=== PATIENT | male | born 1965 | race Caucasian/White ===

== ENCOUNTER 2018-06-25 21:08 | Inpatient (IN) | payer OTHER ==
[~2018-06-25] VITALS: Ht 170.7 cm; Wt 84.0 kg
[~2018-06-25 21:08] MED LIST: ALBU8.5H8 INH; HYDR-3498 PO; LIPA1CAP6 PO; LIT300 PO; OLAN5TAB5 PO
[2018-06-25 22:13] VITALS: PULSE 80
--- NOTE | 2018-06-25 22:22 | HP ---
Date/Time of Note Date/Time of Note DATE: 06/25/18 TIME: 22:22 Assessment/Plan VTE Prophylaxis SCD applied (from Nsg): Yes Pharmacological prophylaxis: NA/contraindicated Pharm contraindication: low risk/ambulating Assessment/Plan Hospital Course This is a 53-year-old male being admitted to the telemetry floor for: #1 chest pain: Rule out ACS versus angina versus other. Patient has had ongoing intermittent symptoms of left-sided chest pain for the last month. He does have an extensive drug history and a past medical history. Will trend cardiac enzymes x3, the first that was negative. Will check an echocardiogram. Will consult cardiology . Will check hemoglobin A1c, lipid panel, TSH #2 Multiple abscesses: Patient does have a previous history of IV drug use. He does have multiple abscesses of varying stages on his shoulders as well as his bilateral buttocks. He did receive vancomycin at the transferring facility. He does not have a elevated white blood cell count nor is afebrile. Will obtain soft tissue ultrasound of the left buttocks as those abscesses seem the most amenable to possible drainage. Defer to the day team to consult general surgery once the results of the soft tissue ultrasounds are in. #3 history of pancreatitis; continue Creon #4 squamous cell carcinoma: We will need to confirm with the patient where exactly he had this #5 COPD: Currently stable. Inhalers as needed #6. Hypertension: We will need to confirm patient's home medications and treat blood pressure if indicated #7 history of hepatitis A, B, and C: Check hepatitis panel. #8 illicit drug use: Patient has reports IV drug use approximately month ago. He did smoke heroin recently. Will need to encourage cessation. # 9 DVT GI prophylaxis: SCDs, no GI prophylaxis indicated Further treatment strategy will be implemented as per the record HPI/ROS Admit Date/Time Admit Date/Time June 25, 2018 at 21:44 Hx of Present Illness Chief complaint: Intermittent chest pain x1 month This is a 53-year-old male with a past medical history of DVT COPD hyperlipidemia hypertension asthma arthritis hepatitis A, B, and C, pancreatitis and squamous cell carcinoma bipolar, who presented to [facility] with complaints of left-sided chest pain. Patient reports that the pain has been constant over the last month. At times he describes it is sharp in nature and feels pressure-like. At times he reports subjective fevers as well. He has a history of previous IV drug use but recently has a smoked heroin and has not used any IV drugs for the last 1 month or so. He does report that he has a history of bipolar and is being followed by clinic and does receive his psychiatric medications for which the only when he knows right now is carpeting 300 mg twice daily. Patient also reports that he has had multiple abscesses on his shoulders as well as his buttocks from previous IV drug use. He did receive previous treatment with Keflex. Pertinent laboratory findings a transversely showed: Troponin less than 0.029, pending blood culture X-ray: Negative for any acute cardiopulmonary process. EKG: Normal sinus rhythm at approximately 83 bpm, no ST or T wave normalities concerning for acute ischemia Allergies: NKDA Medications: Unknown, patient needs to confirm with [facility] ROS Const: As per HPI Eyes : No pain discharge or redness or change in visual acuity ENT: No pain, sore throat, congestion, congestion, dysphagia or discharge Respiratory: No shortness of breath, cough, sputum, wheezing, or pleuritic pain Cardiovascular: As per HPI GI : no change in appetite, abdominal pain, nausea, vomiting, diarrhea, constipation, or change in the color his stool Genitourinary: No dysuria, hematuria, flank pain , discharge or CVA tenderness Musculoskeletal: No joint pain, back pain, neck pain, restricted range of motion in neck or joints Skin: As per HPI Neuro: No headache, dizziness, syncope, seizure, focal weakness Endocrine: No polyuria, polydipsia, temperature intolerance Psych: No hallucination, depression, anxiety or suicidal ideation PMH/Family/Social Past Medical History DVT, COPD, hyperlipidemia, hypertension, asthma, arthritis, MRSA, hepatitis A B and C, pancreatitis, squama cell carcinoma, bipolar disorder Coded Allergies: No Known Drug Allergy (Verified Allergy, Mild, 07/05/15) Past Surgical History Left fifth digit amputation of foot, appendectomy Social History Alcohol Use: none Smoking Status: Former smoker Drug Use: heroin Exam/Review of Systems Exam Exam General: Currently lying in bed in no acute distress HEENT: Atraumatic, normocephalic. The pupils are equal, round and reactive. Extraocular motor are intact Neck: Supple with full range of motion. No rigidity or meningismus Chest: Nontender Lungs: Clear to auscultation bilaterally no crackles rales or wheezing Heart: Normal S1-S2, Regular rhythm and rate. No murmur, S3, or S4 Abdomen: Soft , nontender, nondistended , bowel sounds are present. No guarding no rebound tenderness , No masses or organomegaly. No costovertebral temporal angle mass Extremities: Normal to inspection, no edema no cyanosis Skin: Left-sided old shoulder abscesses, nonfluctuant nonindurated. Bilateral buttocks abscesses with some possible fluctuance and induration of the left buttocks. No erythema or redness or warmth noted to touch. Neurologic: Normal mental status, speech normal, cranial nerves II through XII are intact, motor and sensory are intact, LINDSAY BEASLEY June 25, 2018 22:22
[2018-06-25] MEDS ORDERED: ONDANSETRON 4 MG INJ IV PRN (22:30)
[2018-06-25] MEDS ORDERED: NITROGLYCERIN (SL) 0.4 MG TAB SL PRN (22:30)
[2018-06-25] MEDS ORDERED: DOCUSATE SODIUM 100 MG CAP PO PRN (22:30)
[2018-06-25] MEDS ORDERED: BISACODYL (EC) 5 MG TAB PO PRN (22:30)
[2018-06-25] MEDS ORDERED: ACETAMINOPHEN 325 MG TAB PO PRN (22:30)
[2018-06-25] MEDS ORDERED: morphine 2 MG INJ IV PRN (22:30)
[2018-06-25] MEDS ORDERED: NACL 0.9% 3 ML SYG IV SCH (22:30)
[2018-06-25] MEDS ORDERED: morphine 2 MG INJ IM PRN (23:27)
[2018-06-25] MEDS: morphine 2 MG INJ IM PRN (23:44)
[2018-06-26] VITALS (11 sets, daily range): BP systolic 132–168; BP diastolic 79–106; PULSE 70–103; RESP 18–20
[2018-06-26] MEDS ORDERED: PENDING SANTYL ORDER FOR WOUND CARE XX PRN (00:30)
[2018-06-26] MEDS ORDERED: morphine 2 MG INJ IM PRN (02:30)
[2018-06-26] MEDS: morphine 2 MG INJ IM PRN ×5 (04:07→22:08)
[2018-06-26] MEDS: CREON (24K-76K-120K) 1 CAP PO SCH ×3 (08:00→18:56)
--- NOTE | 2018-06-26 12:19 | PN ---
Date/Time of Note Date/Time of Note DATE: 06/26/18 TIME: 12:03 Assessment/Plan VTE Prophylaxis SCD applied (from Nsg): Yes Pharmacological prophylaxis: other Lines/Catheters Urinary Cath still in place: No Assessment/Plan Assessment/Plan 1. Chest pain, constant for one month, unlikely cardiac, follow up with tiffany freguson, cardiology consult 2. Skin popping with multiple skin lesions including a abscess on left buttock, DR. Kemp for I&D, ID for antibiotics 3. Chronic pancreatitis, stable on Creon 4. h/o squamous cell carcinoma: We will need to confirm with the patient where exactly he had this 5. COPD: Currently stable. Inhalers as needed 6. Hypertension, controlled 7. History of hepatitis A, B, and C 8. llicit drug use: Patient has reports IV drug use approximately month ago. He did smoke heroin recently. Will need to encourage cessation. 9 DVT GI prophylaxis: SCDs Result Diagram: 06/25/18 2315 06/25/18 2315 Results 24hrs Laboratory Tests Test 06/25/18 22:21 06/25/18 23:15 Urine Opiates Screen Positive Urine Barbiturates Negative Urine Amphetamines Screen Negative Urine Benzodiazepines Screen Negative Urine Cocaine Screen Negative Urine Cannabinoids Negative White Blood Count 6.3 Red Blood Count 4.54 L Hemoglobin 13.5 L Hematocrit 41.6 L Mean Corpuscular Volume 91.6 Mean Corpuscular Hemoglobin 29.7 Mean Corpuscular Hemoglobin Concent 32.5 Red Cell Distribution Width 14.6 H Platelet Count 253 Mean Platelet Volume 10.6 #H Immature Granulocytes % 0.300 Neutrophils % 51.8 Lymphocytes % 29.8 Monocytes % 9.2 Eosinophils % 7.0 Basophils % 1.9 Nucleated Red Blood Cells % 0.0 Immature Granulocytes # 0.020 Neutrophils # 3.3 Lymphocytes # 1.9 Monocytes # 0.6 Eosinophils # 0.4 Basophils # 0.1 Nucleated Red Blood Cells # 0.0 Sodium Level 138 Potassium Level 4.1 Chloride Level 103 Carbon Dioxide Level 27 Anion Gap 8 Blood Urea Nitrogen 12 Creatinine 0.96 Est Glomerular Filtrat Rate mL/min > 60 Glucose Level 88 Calcium Level 9.4 Total Bilirubin 0.2 Direct Bilirubin 0.00 Indirect Bilirubin 0.2 Aspartate Amino Transf (AST/SGOT) 33 Alanine Aminotransferase (ALT/SGPT) 21 Alkaline Phosphatase 103 Creatine Kinase 53 Creatine Kinase Index 1.9 Creatinine Kinase MB (Mass) 1.02 Troponin I < 0.012 Total Protein 7.4 Albumin 3.7 Globulin 3.70 H Albumin/Globulin Ratio 1.00 Ethyl Alcohol Level < 10.0 H Subjective 24 Hr Interval Summary Free Text/Dictation afebrile constant left sided chest pain Exam/Review of Systems Exam Vitals Vital Signs Date Temp Pulse Resp B/P (MAP) Pulse Ox O2 O2 Flow FiO2 Time Delivery Rate 06/26/18 98.3 83 20 138/89 97 Room Air 11:25 (105) Intake and Output 06/25/18 06/25/18 06/26/18 1515:00 23:00 07:00 IntakeIntake Total 200 ml BalanceBalance 200 ml Constitutional: alert, oriented, well developed Psych: no complaints, nl mood/affect Head: normocephalic, atraumatic Eyes: nl conjunctiva, EOMI, nl lids ENMT: nl external ears & nose, nl lips & teeth, nl nasal mucosa & septum Neck: supple, non-tender Respiratory: clear to auscultation, normal air movement; No congested cough, No diminished breath sounds, No intercostal retraction, No labored breathing, No respirations, No tactile fremitus, No wheezing, No other Cardiovascular: regular rate and rhythm, nl pulses; No bruits, No diastolic murmur, No edema, No gallop, No irregular rhythm, No jugular venous distention (JVD), No murmurs/extra sounds, No rub, No systolic murmur, No S3, No S4, No other Gastrointestinal: soft, nl liver, spleen, non-tender Musculoskeletal: nl extremities to inspection Extremities: other (diffuse skin lesions on both soulders, buttocks from skin popping. there is a lesion with redness, fluid, and tenderness on left buttock) Neurological: [employer] II-XII intact, nl mental status, nl speech, nl strength Results Results 24hrs Laboratory Tests Test 06/25/18 22:21 06/25/18 23:15 Urine Opiates Screen Positive Urine Barbiturates Negative Urine Amphetamines Screen Negative Urine Benzodiazepines Screen Negative Urine Cocaine Screen Negative Urine Cannabinoids Negative White Blood Count 6.3 Red Blood Count 4.54 L Hemoglobin 13.5 L Hematocrit 41.6 L Mean Corpuscular Volume 91.6 Mean Corpuscular Hemoglobin 29.7 Mean Corpuscular Hemoglobin Concent 32.5 Red Cell Distribution Width 14.6 H Platelet Count 253 Mean Platelet Volume 10.6 #H Immature Granulocytes % 0.300 Neutrophils % 51.8 Lymphocytes % 29.8 Monocytes % 9.2 Eosinophils % 7.0 Basophils % 1.9 Nucleated Red Blood Cells % 0.0 Immature Granulocytes # 0.020 Neutrophils # 3.3 Lymphocytes # 1.9 Monocytes # 0.6 Eosinophils # 0.4 Basophils # 0.1 Nucleated Red Blood Cells # 0.0 Sodium Level 138 Potassium Level 4.1 Chloride Level 103 Carbon Dioxide Level 27 Anion Gap 8 Blood Urea Nitrogen 12 Creatinine 0.96 Est Glomerular Filtrat Rate mL/min > 60 Glucose Level 88 Calcium Level 9.4 Total Bilirubin 0.2 Direct Bilirubin 0.00 Indirect Bilirubin 0.2 Aspartate Amino Transf (AST/SGOT) 33 Alanine Aminotransferase (ALT/SGPT) 21 Alkaline Phosphatase 103 Creatine Kinase 53 Creatine Kinase Index 1.9 Creatinine Kinase MB (Mass) 1.02 Troponin I < 0.012 Total Protein 7.4 Albumin 3.7 Globulin 3.70 H Albumin/Globulin Ratio 1.00 Ethyl Alcohol Level < 10.0 H Medications Medication Current Medications IV Flush (NS 3 ml) 3 ml PER PROTOCOL IV ; Start 06/25/18 at 22:30 Ondansetron HCl (Zofran Inj) 4 mg Q6H PRN IV NAUSEA/VOMITING; Start 06/25/18 at 22:30 Nitroglycerin (Nitroglycerin (Sl Tab) 0.4 Mg) 1 tab Q5M PRN SL .CHEST PAIN; Start 06/25/18 at 22:30 Acetaminophen (Tylenol Tab) 650 mg Q6H PRN PO .PAIN 1-3 OR TEMP Last administered on 06/26/18at 09:29; Admin Dose 650 MG; Start 06/25/18 at 22:30 Docusate Sodium (Colace) 100 mg Q12H PRN PO .CONSTIPATION; Start 06/25/18 at 22:30 Bisacodyl (Dulcolax) 5 mg DAILY PRN PO .CONSTIPATION; Start 06/25/18 at 22:30 Morphine Sulfate (morphine) 2 mg Q4H PRN IM SEVERE PAIN LEVEL 7-10 Last administered on 06/26/18at 09:30; Admin Dose 2 MG; Start 06/25/18 at 23:45 Miscellaneous Information (Pending Santyl Order For Wound Care) This patient francis... PRN PRN XX WOUND CARE; Start 06/26/18 at 00:30 Amylase/Lipase/ Protease (Creon ([id number])) 1 cap WITH MEALS PO ; Start 06/26/18 at 08:00 WILLIAM VEGA MD June 26, 2018 12:13
--- NOTE | 2018-06-26 14:37 | RADRPT ---
Echocardiogram Report Patient Name: Thalia KINGent ID: [id number] : 1965 (53y 1m)Study Date: 06/26/2018 8:08:30 AM Gender: Quintincession #: [id number] Tech: KristinLeslie Wakler [facility] Location: 61 Ref.Physician: LINDSAY BEASLEY Height(Cm): BSA: Weight(Kg): Quality: AdequateOrder Physician: LINDSAY BEASLEY Account #: Procedures: Echocardiographic Report: Transthoracic echocardiogram with complete 2D, M-Mode, and doppler examination. Indications: Chest Pain. Measurements: 2D/M Mode Doppler Measurement Value Normal Range Measurement Value Normal Range LVIDd 2D 4.5 [ 4.2 - 5.8 ] cm AV Peak Luis Miguel 1.4 [ 100.0 - 170.0 ] cm/sec LVIDs 2D 2.8 [ 2.5 - 4.0 ] cm AV Peak PG 7.0 [ 2.0 - 9.0 ] mmHg LVPWd 2D 1.1 [ 0.6 - 1.0 ] cm LVOT Peak Luis Miguel 1.0 [ 70.0 - 110.0 ] cm/sec IVSd 2D 1.2 [ 0.6 - 1.0 ] cm LVOT Peak PG 4.0 [ 2.0 - 6.0 ] mmHg AoR Diam 2D 2.9 [ 2.6 - 3.4 ] cm MV E Peak Luis Miguel 0.7 [ 60.0 - 130.0 ] cm/sec EDV 2D 90.5 [ 62.0 - 150.0 ] ml MV A Peak Luis Miguel 0.9 [ 100.0 - 120.0 ] cm/sec ESV 2D 30.3 [ 21.0 - 61.0 ] ml MV E/A 0.7 [ 0.8 - 1.5 ] ratio EF 2D 66.5 [ 52.0 - 72.0 ] percent MV Decel Time 165 [ 104 - 258 ] msec LA Dimen 2D 3.5 [ 3.0 - 4.0 ] cm Lat E` Luis Miguel 0.1 [ 10.0 - 15.0 ] cm/sec Lateral E/E` 6.4 [ 1.0 - 2.0 ] ratio MV E/A 0.7 [ 0.8 - 1.5 ] ratio Findings: Left Ventricle: Normal left ventricular systolic function. Normal left ventricular cavity size. Left ventricular wall thickness upper limits of normal. Ejection fraction is visually estimated at 60 %. Tissue Doppler/Mitral Doppler indices are within normal limits. Right Ventricle: Normal right ventricular size. Normal right ventricular systolic function. Left Atrium: The left atrium is normal in size. Right Atrium: The right atrium is normal in size. Mitral Valve: Normal appearance of the mitral valve. Normal appearance and function of the mitral valve with trace physiologic regurgitation. Aortic Valve: Normal appearance of the aortic valve. No significant aortic stenosis or insufficiency. Tricuspid Valve: Normal appearance of the tricuspid valve. Unable to obtain RVSP due to minimal presence of tricuspid regurgitation. No evidence of tricuspid regurgitation. Pulmonic Valve: Normal pulmonic valve appearance. Pericardium: Normal pericardium with no significant pericardial effusion. Aorta: Normal aortic root. IVC: Normal size and normal respiratory collapse consistent with normal right atrial pressure. Conclusions: Normal left ventricular systolic function. Normal left ventricular cavity size. Left ventricular wall thickness upper limits of normal. Ejection fraction is visually estimated at 60 %. Tissue Doppler/Mitral Doppler indices are within normal limits. No significant valvular stenosis or regurgitation seen. Unable to obtain RVSP due to minimal presence of tricuspid regurgitation. Normal size and normal respiratory collapse consistent with normal right atrial pressure. Electronically Signed By: Matthew Armstrong 2018-06-26 14:37:13 PDT
--- NOTE | 2018-06-26 17:31 | CONS ---
Assessment/Plan Assessment/Plan Hospital Course (Demo Recall) Chest pain: Unlikely cardiac/CAD related. Trops negative, EKG unremarkable. Echo normal. With history of DVT and right leg edema, PE is in the differential. Also no vegetation seen but with IV drug abuse and abscesses, septic emboli also possible. Leg edema: very mild but with h/o DVT will check IV drug abuse Abscesses Hep B/C h/o DVT Chronic pancreatitis -check lower ext dopplers -d-dimer. Could consider chest CTA if high -blood cultures Consultation Date/Type/Reason Admit Date/Time June 25, 2018 at 21:44 Date of Consultation: June 26, 2018 Type of Consult Cardiology Reason for Consultation Chest pain Requesting Provider: WILLIAM VEGA MD Date/Time of Note DATE: 06/26/18 TIME: 17:07 Hx of Present Illness 53 yo M with a h/o IV drug abuse (last heroin 1 month prior), multiple skin abscesses, unprovoked DVT in his 30s, Hep B/C, chronic pancreatitis, ?homeless, who presented initially to [facility] mainly due to his abscesses and also chest pain. He apparently was on PO Keflex but without effect. In terms of the chest pain, it is constant for 1 month and he has been evaluated before. Non exertional and not aggravated by anything. Not pleuritic. Also complains of right leg edema. per HPI Past Medical History per hPI Home Meds Active Scripts Albuterol Sulfate* (Proair HFA*) 8.5 Gm Hfa.aer.ad, 2 PUFF INH Q4 for WHEEZING, #1 INHALER Prov:KENYA JEONG MD 07/05/15 Reported Medications Dlyopq-Jxpfraqw-Pipmeku* (Veronica RYAN* 24,000) 24,000 L-76,000-120,000 Unit Capsule.dr, 1 CAP PO WITH MEALS, CAP 08/18/15 Hydrocodone Bit-Acetaminophen* ([place]*) 5-325 Mg Tab, 1 TAB PO Q4H PRN for SEVERE PAIN LEVEL 7-10, TAB 08/18/15 Olanzapine* (Zyprexa*) 5 Mg Tablet, 5 MG PO DAILY, #30 TAB 08/18/15 [place] Carbonate* ([place]*) 300 Mg Cap, 300 MG PO TID, CAP 08/18/15 Medications Current Medications IV Flush (NS 3 ml) 3 ml PER PROTOCOL IV ; Start 06/25/18 at 22:30 Ondansetron HCl (Zofran Inj) 4 mg Q6H PRN IV NAUSEA/VOMITING; Start 06/25/18 at 22:30 Nitroglycerin (Nitroglycerin (Sl Tab) 0.4 Mg) 1 tab Q5M PRN SL .CHEST PAIN; Start 06/25/18 at 22:30 Acetaminophen (Tylenol Tab) 650 mg Q6H PRN PO .PAIN 1-3 OR TEMP Last administered on 06/26/18at 09:29; Admin Dose 650 MG; Start 06/25/18 at 22:30 Docusate Sodium (Colace) 100 mg Q12H PRN PO .CONSTIPATION; Start 06/25/18 at 22:30 Bisacodyl (Dulcolax) 5 mg DAILY PRN PO .CONSTIPATION; Start 06/25/18 at 22:30 Morphine Sulfate (morphine) 2 mg Q4H PRN IM SEVERE PAIN LEVEL 7-10 Last administered on 06/26/18at 13:42; Admin Dose 2 MG; Start 06/25/18 at 23:45 [facility] This patient francis... PRN PRN XX WOUND CARE; Start 06/26/18 at 00:30 Amylase/Lipase/ Protease (Creon ([id number])) 1 cap WITH MEALS PO ; Start 06/26/18 at 08:00 Allergies: Coded Allergies: No Known Drug Allergy (Verified Allergy, Mild, 07/05/15) Social History Alcohol Use: none Smoking Status: Former smoker Drug Use: heroin Exam/Review of Systems Vital Signs Vitals Vital Signs Date Temp Pulse Resp B/P (MAP) Pulse Ox O2 O2 Flow FiO2 Time Delivery Rate 06/26/18 87 16:17 06/26/18 98.5 19 162/97 95 15:08 (118) 06/26/18 Room Air 11:25 Intake and Output 06/25/18 06/25/18 06/26/18 1515:00 23:00 07:00 IntakeIntake Total 200 ml BalanceBalance 200 ml Exam Constitutional: alert, oriented Psych: no complaints, nl mood/affect Head: normocephalic, atraumatic Neck: No jvd Respiratory: diminished breath sounds; No clear to auscultation Cardiovascular: regular rate and rhythm, edema (trace right); No systolic murmur Gastrointestinal: soft, non-tender; No distended Neurological: nl mental status, nl speech Skin: other (multiple abscesses) Labs Result Diagram: 06/25/18 2315 06/25/18 2315 Results 24hrs Laboratory Tests Test 06/25/18 22:21 06/25/18 23:15 06/26/18 13:48 Urine Opiates Screen Positive Urine Barbiturates Negative Urine Amphetamines Screen Negative Urine Benzodiazepines Screen Negative Urine Cocaine Screen Negative Urine Cannabinoids Negative White Blood Count 6.3 Red Blood Count 4.54 L Hemoglobin 13.5 L Hematocrit 41.6 L Mean Corpuscular Volume 91.6 Mean Corpuscular Hemoglobin 29.7 Mean Corpuscular Hemoglobin Concent 32.5 Red Cell Distribution Width 14.6 H Platelet Count 253 Mean Platelet Volume 10.6 #H Immature Granulocytes % 0.300 Neutrophils % 51.8 Lymphocytes % 29.8 Monocytes % 9.2 Eosinophils % 7.0 Basophils % 1.9 Nucleated Red Blood Cells % 0.0 Immature Granulocytes # 0.020 Neutrophils # 3.3 Lymphocytes # 1.9 Monocytes # 0.6 Eosinophils # 0.4 Basophils # 0.1 Nucleated Red Blood Cells # 0.0 Sodium Level 138 Potassium Level 4.1 Chloride Level 103 Carbon Dioxide Level 27 Anion Gap 8 Blood Urea Nitrogen 12 Creatinine 0.96 Est Glomerular Filtrat Rate mL/min > 60 Glucose Level 88 Calcium Level 9.4 Total Bilirubin 0.2 Direct Bilirubin 0.00 Indirect Bilirubin 0.2 Aspartate Amino Transf (AST/SGOT) 33 Alanine Aminotransferase (ALT/SGPT) 21 Alkaline Phosphatase 103 Creatine Kinase 53 Creatine Kinase Index 1.9 Creatinine Kinase MB (Mass) 1.02 Troponin I < 0.012 < 0.012 Total Protein 7.4 Albumin 3.7 Globulin 3.70 H Albumin/Globulin Ratio 1.00 Ethyl Alcohol Level < 10.0 H Medications Medications Current Medications IV Flush (NS 3 ml) 3 ml PER PROTOCOL IV ; Start 06/25/18 at 22:30 Ondansetron HCl (Zofran Inj) 4 mg Q6H PRN IV NAUSEA/VOMITING; Start 06/25/18 at 22:30 Nitroglycerin (Nitroglycerin (Sl Tab) 0.4 Mg) 1 tab Q5M PRN SL .CHEST PAIN; Start 06/25/18 at 22:30 Acetaminophen (Tylenol Tab) 650 mg Q6H PRN PO .PAIN 1-3 OR TEMP Last administered on 06/26/18at 09:29; Admin Dose 650 MG; Start 06/25/18 at 22:30 Docusate Sodium (Colace) 100 mg Q12H PRN PO .CONSTIPATION; Start 06/25/18 at 22:30 Bisacodyl (Dulcolax) 5 mg DAILY PRN PO .CONSTIPATION; Start 06/25/18 at 22:30 Morphine Sulfate (morphine) 2 mg Q4H PRN IM SEVERE PAIN LEVEL 7-10 Last administered on 06/26/18at 13:42; Admin Dose 2 MG; Start 06/25/18 at 23:45 Miscellaneous Information (Pending [facility] Order For Wound Care) This patient h a... PRN PRN XX WOUND CARE; Start 06/26/18 at 00:30 Amylase/Lipase/ Protease (Creon ([id number])) 1 cap WITH MEALS PO ; Start 06/26/18 at 08:00 MADHURI GUERRA June 26, 2018 17:27
--- NOTE | 2018-06-26 17:42 | CONS ---
DATE OF ADMISSION: 06/25/2018 DATE OF CONSULTATION: 06/26/2018 TYPE OF CONSULTATION: Infectious disease. REASON FOR CONSULTATION: Antibiotic management. HISTORY OF PRESENT ILLNESS: Keven Salas is a 53-year-old male who comes in with intermittent chest pa in for 1 month. His past problems include: 1. History of DVT. 2. COPD. 3. Hyperlipidemia. 4. Hypertension. 5. Asthma. 6. Arthritis. 7. Hepatitis A, B and C. 8. Pancreatitis. 9. Squamous cell carcinoma. 10. Bipolar affect. The patient presented to [facility] with left-sided chest pain, constant over the last month. At times, he describes it as sharp in nature and pressure-like. He reports some subjective fever as well. He has a history of previous IV drug abuse and recently has smoked heroin. He has no t used any IV drugs in the last month or so. He reports he has bipolar affect and is being followed in the clinic, has received psychiatric medications. He has multiple abscesses on his shoulders as w ell as his buttocks from previous IV drug abuse. He received some treatment with Keflex in the past. His troponin was less than 0.29. X-ray is negative for any cardiopulmonary process. EKG is normal . PAST MEDICAL HISTORY: He has history of MRSA as well; otherwise as outlined. SURGICAL HISTORY: Left 5th digit amputation of the foot and status post appendectomy. FAMILY HISTORY: Noncontributory. SOCIAL HISTORY: He is a former smoker. He also uses heroin and is an IV drug abuser. PHYSICAL EXAMINATION: GENERAL: He is lying in bed in no acute distress. VITAL SIGNS: Stable. He is afebrile. SKIN: Without generalized rash. He has left-sided old shoulder abscesses, nonfluctuant, not indurat ed bilateral buttock abscesses with some possible fluctuance and induration of the left buttocks. No erythema or warmth. HEENT: Within normal limits. NECK: Supple. LYMPH NODES: None palpable. CHEST: Decreased breath sounds at the bases. HEART: Without murmur or gallop. ABDOMEN: Soft, nontender without organosplenomegaly or masses. EXTREMITIES: Without cyanosis, clubbing or edema. RECTAL AND GENITAL: Deferred. NEUROLOGIC: No focal neurological abnormality. HOSPITAL COURSE: The patient was started on no antibiotics at the present time. Soft tissue ultraso und shows complex fluid collection left buttocks suspicious for abscess. He is seen by Dr. Vega. C hest pain is constant for 1 month. Skin popping with multiple skin lesions including abscess of left buttock. Dr. Kemp to see for I and D. Chronic pancreatitis on Creon, history of squamous cell c arcinoma. White count is 6.3, H and H of 13.5 and 41.6, platelet count 253. BUN and creatinine is 1 2/0.96. IMPRESSION AND PLAN: We could start antibiotic therapy at this point. However, it would be good to get the culture first before starting antibiotic therapy. He is stable at the present time. White c ount 6.3 and he is afebrile. I will await Dr. Kemp's evaluation and I and D. If necessary, we ca n start him on vancomycin. I will dictate my findings to the hospitalist. Dictated By: MARIBELL BARNES MD LISS/JEET Conf#: [id number] DID#: [id number] CC: VARUN WHATLEY NP; ELVIN RAMOS MD; WILLIAM VEGA MD;*[facility]*
[2018-06-26] MEDS: NIFEdipine (XL) 60 MG TAB PO SCH (19:54)
[2018-06-26] MEDS ORDERED: LIDOCAINE 1%/EPI (MDV) 50 ML INJ INJ ONE (21:00)
[2018-06-26] MEDS ORDERED: SILVER NITRATE SWAB TOP ONE ×2 (21:00→21:30)
[2018-06-26] MEDS ORDERED: LIDOCAINE 1%/EPI (1:100,000) (MDV) 20 ML INJ SCH (21:30)
--- NOTE | 2018-06-26 21:40 | CONS ---
Assessment/Plan Assessment/Plan Hospital Course (Demo Recall) 1. Left buttock abscess and the 2 skin popping with black tar heroin and fentanyl -I&D -Warm compress -Antibiotics -Encouraged cessation 2. Drug abuse history. Patient states he is in detox. 3. Chest pain rule out acute coronary syndrome 4. Anemia -Monitor 5. Hepatitis A, B, C -Medical and GI optimization Thank you very much for consulting me this patient's care, Consultation Date/Type/Reason Admit Date/Time June 25, 2018 at 21:44 Date of Consultation: June 26, 2018 Type of Consult General surgical Reason for Consultation Left buttock abscess Skin pop with black tar heroin Requesting Provider: WILLIAM VEGA MD Date/Time of Note DATE: 06/26/18 TIME: 21:40 Hx of Present Illness Keven Salas is a 53-year-old male with significant past medical history presented to [facility] with complaints of left-sided chest pain. Patient reports that the pain has been constant over the last month. At times he describes it is sharp in nature and feels pressure-like. At times he reports subjective fevers without chills. No nausea vomiting. No visual or neurologic changes. No dysuria. No change in bowel habits. He is currently in drug rehab however he is a chronic drug user with multiple relapses. She is skin popped black tar with fentanyl about a month ago. He has had multiple I&D's. He is receiving antibiotics for his left buttock abscess. He has induration is multiple areas. Surgical consult is obtained for further evaluation and treatment. 12 point review of systems negative unless otherwise addressed in chart Past Medical History DVT, COPD, Hyperlipidemia, Hypertension, Asthma, Arthritis, MRSA, Hepatitis A B and C, Pancreatitis, Squama cell carcinoma, Bipolar disorder Anemia Home Meds Active Scripts Albuterol Sulfate* (Proair HFA*) 8.5 Gm Hfa.aer.ad, 2 PUFF INH Q4 for WHEEZING, #1 INHALER Prov:KENYA JEONG MD 07/05/15 Reported Medications Zkptte-Tlqtmgvt-Sytzlyj* (Veronica RYAN* 24,000) 24,000 L-76,000-120,000 Unit Capsule.dr, 1 CAP PO WITH MEALS, CAP 08/18/15 Hydrocodone Bit-Acetaminophen* (Butler*) 5-325 Mg Tab, 1 TAB PO Q4H PRN for SEVERE PAIN LEVEL 7-10, TAB 08/18/15 Olanzapine* (Zyprexa*) 5 Mg Tablet, 5 MG PO DAILY, #30 TAB 08/18/15 Dean Carbonate* (Dean*) 300 Mg Cap, 300 MG PO TID, CAP 08/18/15 Medications Current Medications IV Flush (NS 3 ml) 3 ml PER PROTOCOL IV ; Start 06/25/18 at 22:30 Ondansetron HCl (Zofran Inj) 4 mg Q6H PRN IV NAUSEA/VOMITING; Start 06/25/18 at 22:30 Nitroglycerin (Nitroglycerin (Sl Tab) 0.4 Mg) 1 tab Q5M PRN SL .CHEST PAIN; Start 06/25/18 at 22:30 Acetaminophen (Tylenol Tab) 650 mg Q6H PRN PO .PAIN 1-3 OR TEMP Last administered on 06/26/18at 09:29; Admin Dose 650 MG; Start 06/25/18 at 22:30 Docusate Sodium (Colace) 100 mg Q12H PRN PO .CONSTIPATION; Start 06/25/18 at 22:30 Bisacodyl (Dulcolax) 5 mg DAILY PRN PO .CONSTIPATION; Start 06/25/18 at 22:30 Morphine Sulfate (morphine) 2 mg Q4H PRN IM SEVERE PAIN LEVEL 7-10 Last administered on 06/26/18at 17:36; Admin Dose 2 MG; Start 06/25/18 at 23:45 Miscellaneous Information [facility] This patient francis... PRN PRN XX WOUND CARE; Start 06/26/18 at 00:30 Amylase/Lipase/ Protease (Creon ([id number])) 1 cap WITH MEALS PO Last administered on 06/26/18at 18:56; Admin Dose 1 CAP; Start 06/26/18 at 08:00 Nifedipine (Procardia Xl) 60 mg DAILY PO Last administered on 06/26/18at 19:54; Admin Dose 60 MG; Start 06/26/18 at 19:30 Lidocaine/ Epinephrine (Xylocaine 1%/ Epi (Mdv) 20 ml) 40 ml ONCE INJ ; Start 06/26/18 at 21:30; Stop 06/26/18 at 23:00 Allergies: Coded Allergies: No Known Drug Allergy (Verified Allergy, Mild, 07/05/15) Past Surgical History Left fifth digit amputation of foot, Appendectomy I&D's Family History Significant Family History: no pertinent family hx Social History Alcohol Use: none Smoking Status: Former smoker Drug Use: heroin Exam/Review of Systems Exam Vitals Vital Signs Date Temp Pulse Resp B/P (MAP) Pulse Ox O2 O2 Flow FiO2 Time Delivery Rate 06/26/18 91 20:00 06/26/18 98.5 19 162/97 95 15:08 (118) 06/26/18 Room Air 11:25 Intake and Output 06/25/18 06/25/18 06/26/18 1414:59 22:59 06:59 IntakeIntake Total 200 ml BalanceBalance 200 ml Constitutional: alert, oriented; No distress Psych: nl mood/affect; No anxiety Head: normocephalic, atraumatic Eyes: nl conjunctiva, EOMI, PERRL; No icteric ENMT: nl external ears & nose, mucosa pink and moist Neck: non-tender; No jvd Respiratory: normal air movement; No congested cough, No labored breathing Cardiovascular: regular rate and rhythm; No edema Gastrointestinal: soft, non-tender; No rebound or guarding Genitourinary - Male: nl penis, nl scrotum Musculoskeletal: No nl extremities to inspection (Multiple indurated sites), No joint tenderness Extremities: normal pulses; No calf tenderness Neurological: nl mental status, nl speech, nl strength Skin: rash or lesions (Multiple indurated sites and injection sites. Left buttock with fluctuance. Blanching erythema left buttock.); No diaphoresis Lymph: nl lymph nodes Results Result Diagram: 06/25/18 2315 06/25/18 2315 Results 24hrs Laboratory Tests Test 06/25/18 22:21 06/25/18 23:15 06/26/18 13:48 06/26/18 17:44 Urine Opiates Screen Positive Urine Barbiturates Negative Urine Amphetamines Negative Screen Urine Negative Benzodiazepines Screen Urine Cocaine Screen Negative Urine Cannabinoids Negative White Blood Count 6.3 Red Blood Count 4.54 L Hemoglobin 13.5 L Hematocrit 41.6 L Mean Corpuscular 91.6 Volume Mean Corpuscular 29.7 Hemoglobin Mean Corpuscular 32.5 Hemoglobin Concent Red Cell 14.6 H Distribution Width Platelet Count 253 Mean Platelet Volume 10.6 #H Immature 0.300 Granulocytes % Neutrophils % 51.8 Lymphocytes % 29.8 Monocytes % 9.2 Eosinophils % 7.0 Basophils % 1.9 Nucleated Red Blood 0.0 Cells % Immature 0.020 Granulocytes # Neutrophils # 3.3 Lymphocytes # 1.9 Monocytes # 0.6 Eosinophils # 0.4 Basophils # 0.1 Nucleated Red Blood 0.0 Cells # Sodium Level 138 Potassium Level 4.1 Chloride Level 103 Carbon Dioxide Level 27 Anion Gap 8 Blood Urea Nitrogen 12 Creatinine 0.96 Est Glomerular > 60 Filtrat Rate mL/min Glucose Level 88 Calcium Level 9.4 Total Bilirubin 0.2 Direct Bilirubin 0.00 Indirect Bilirubin 0.2 Aspartate Amino 33 Transf (AST/SGOT) Alanine 21 Aminotransferase (AL T/SGPT) Alkaline Phosphatase 103 Creatine Kinase 53 Creatine Kinase 1.9 Index Creatinine Kinase MB 1.02 (Mass) Troponin I < 0.012 < 0.012 < 0.012 Total Protein 7.4 Albumin 3.7 Globulin 3.70 H Albumin/Globulin 1.00 Ratio Ethyl Alcohol Level < 10.0 H D-Dimer 626.88 H D-Dimer Comment Medications Medication Current Medications IV Flush (NS 3 ml) 3 ml PER PROTOCOL IV ; Start 06/25/18 at 22:30 Ondansetron HCl (Zofran Inj) 4 mg Q6H PRN IV NAUSEA/VOMITING; Start 06/25/18 at 22:30 Nitroglycerin (Nitroglycerin (Sl Tab) 0.4 Mg) 1 tab Q5M PRN SL .CHEST PAIN; Start 06/25/18 at 22:30 Acetaminophen (Tylenol Tab) 650 mg Q6H PRN PO .PAIN 1-3 OR TEMP Last administered on 06/26/18at 09:29; Admin Dose 650 MG; Start 06/25/18 at 22:30 Docusate Sodium (Colace) 100 mg Q12H PRN PO .CONSTIPATION; Start 06/25/18 at 22:30 Bisacodyl (Dulcolax) 5 mg DAILY PRN PO .CONSTIPATION; Start 06/25/18 at 22:30 Morphine Sulfate (morphine) 2 mg Q4H PRN IM SEVERE PAIN LEVEL 7-10 Last administered on 06/26/18at 17:36; Admin Dose 2 MG; Start 06/25/18 at 23:45 Miscellaneous Information (Pending Santyl Order For Wound Care) This patient francis ... PRN PRN XX WOUND CARE; Start 06/26/18 at 00:30 Amylase/Lipase/ Protease (Creon ([id number])) 1 cap WITH MEALS PO Last administered on 06/26/18at 18:56; Admin Dose 1 CAP; Start 06/26/18 at 08:00 Nifedipine (Procardia Xl) 60 mg DAILY PO Last administered on 06/26/18at 19:54; Admin Dose 60 MG; Start 06/26/18 at 19:30 Lidocaine/ Epinephrine (Xylocaine 1%/ Epi (Mdv) 20 ml) 40 ml ONCE INJ ; Start 06/26/18 at 21:30; Stop 06/26/18 at 23:00 SHERRY YU MD June 26, 2018 21:40
[2018-06-26] MEDS ORDERED: SOD CHLORIDE 0.9% 100 ML ONE (23:21)
[2018-06-26] MEDS ORDERED: IOHEXOL 100 ML ONE (23:21)
[2018-06-27] VITALS: BP 124/85; PULSE 109; PULSE 88; RESP 17
[2018-06-27] MEDS: morphine 2 MG INJ IM PRN ×3 (02:22→10:41)
--- NOTE | 2018-06-27 03:45 | OPR ---
Date/Time of Note Date/Time of Note DATE: 06/27/18 TIME: 03:41 Operative Report Procedure Date: June 27, 2018 Preoperative Diagnosis Left buttock abscess secondary to skin popping of black tar heroin with fentanyl Postoperative Diagnosis Same Operation/Procedure Performed 1. Incision and drainage of left buttock abscess 2. Local anesthetic injection, [id number] Surgeon Sherry Yu MD Play Writer None Anesthesia Type: other (Local) Estimated Blood Loss: 0 - 10 ml's Transfusion none Specimen Culture Grafts/Implants none Tubes/Drains Kerlix with Betadine packing Complications none Pt Condition Post Procedure: stable Disposition: other (Is on room) Indications Per consult note Risks include but are not limited to bleeding, infection, abscess, seroma, chronic wound, chronic pain, need for re-operations or further surgeries, DE, stroke, PE, DVT, pneumonia, organ failures, or even . Procedure Description Patient was placed in his own bed lateral decubitus with left side up. All pressure points were all well-padded. He is on antibiotics. Timeout is performed. Local anesthetic injection is performed at surgical site. Using 15 blade scalpel incision is made into the abscess and large amount of pus is drained. Culture is sent. Wound is irrigated and packed with Betadine soaked Kerlix. Dry dressing was applied. Patient tolerated procedure well. SHERRY YU MD June 27, 2018 03:45
--- NOTE | 2018-06-27 03:48 | PN ---
Date/Time of Note Date/Time of Note DATE: 06/27/18 TIME: 03:45 Assessment/Plan Lines/Catheters [place] in Place (from [facility]): No Assessment/Plan Chief Complaint/Hosp Course 1. Left buttock abscess and the 2 skin popping with black tar heroin and fentanyl s/p I&D 06/27 -Warm compress -Antibiotics -Local care -Offload -Nutritional optimization 2. Drug abuse history. Patient states he is in detox. -Encouraged cessation 3. Chest pain rule out acute coronary syndrome -Defer to medical team 4. Anemia -Monitor 5. Hepatitis A, B, C -Medical and GI optimization Thank you, Subjective 24 Hr Interval Summary s/p I&D. No fevers or chills. No cough. No seizure. No nausea vomiting. No abdominal pain. No chest pain or shortness of breath. No visual or neurologic changes. No dysuria. Bowel function. Exam/Review of Systems Vital Signs Vitals Vital Signs Date Temp Pulse Resp B/P (MAP) Pulse Ox O2 O2 Flow FiO2 Time Delivery Rate 06/27/18 109 00:00 06/26/18 98.5 162/97 95 15:08 (118) 06/26/18 Room Air 11:25 Intake and Output 06/26/18 06/26/18 06/27/18 1515:00 23:00 07:00 IntakeIntake Total 360 ml BalanceBalance 360 ml Exam Free Text/Dictation Constitutional: alert, oriented; No distress Psych: nl mood/affect; No anxiety Head: normocephalic, atraumatic Eyes: nl conjunctiva, EOMI, PERRL; No icteric ENMT: nl external ears & nose, mucosa pink and moist Neck: non-tender; No jvd Respiratory: normal air movement; No congested cough, No labored breathing Cardiovascular: regular rate and rhythm; No edema Gastrointestinal: soft, non-tender; No rebound or guarding Genitourinary - Male: nl penis, nl scrotum Musculoskeletal: No nl extremities to inspection (Multiple indurated sites), No joint tenderness Extremities: normal pulses; No calf tenderness Neurological: nl mental status, nl speech, nl strength Skin: rash or lesions (Multiple indurated sites and injection sites. Left buttock wound with packing.); No diaphoresis Lymph: nl lymph nodes Results Result Diagram: 06/25/18 9475 06/25/18 2315 SHERRY YU MD June 27, 2018 03:47
[2018-06-27 04:00] VITALS: BP 132/93; PULSE 90; RESP 17
[2018-06-27] MEDS ORDERED: ACETAMINOPHEN 500 MG TAB PO ONE (06:47)
[2018-06-27 07:10] VITALS: BP 126/77; PULSE 98; RESP 19
[2018-06-27] MEDS: CREON (24K-76K-120K) 1 CAP PO SCH ×3 (07:53→11:19)
[2018-06-27] MEDS: NIFEdipine (XL) 60 MG TAB PO SCH (07:54)
[2018-06-27 08:00] VITALS: PULSE 96
[2018-06-27] MEDS ORDERED: VANCOMYCIN IV PER PHARMACY XX SCH (11:30)
[2018-06-27 11:58] VITALS: BP 129/90; PULSE 100; RESP 19
[2018-06-27] MEDS ORDERED: SULF1TAB31 PO (13:20)
--- NOTE | 2018-06-27 13:29 | DS ---
Date/Time of Note Date/Time of Note DATE: 06/27/18 TIME: 13:23 Discharge Summary Admission/Discharge Info Admit Date/Time June 26, 2018 at 18:42 Discharge Date/Time Discharge Diagnosis 1. Chest pain, constant for one month, musculoskeletal, follow up with PCP 2. Skin popping with multiple skin lesions including a abscess on left buttock, s/p I&D, bactrim, wound care 3. Chronic pancreatitis, stable on Creon 4. h/o squamous cell carcinoma: We will need to confirm with the patient where exactly he had this 5. COPD: Currently stable. Inhalers as needed 6. Hypertension, controlled 7. History of hepatitis A, B, and C 8. llicit drug use: Patient has reports IV drug use approximately month ago. He did smoke heroin recently. Will need to encourage cessation. Patient Condition: Stable Hospital Course This is a 53-year-old male with a past medical history of DVT COPD hyperlipidemia hypertension asthma arthritis hepatitis A, B, and C, pancreatitis and squamous cell carcinoma bipolar, who presented to [facility] with complaints of left-sided chest pain. Patient reports that the pain has been constant over the last month. At times he describes it is sharp in nature and feels pressure-like. At times he reports subjective fevers as well. He has a history of previous IV drug use but recently has a smoked heroin and has not used any IV drugs for the last 1 month or so. He does report that he has a history of bipolar and is being followed by clinic and does receive his psychiatric medications for which the only when he knows right now is carpeting 300 mg twice daily. Patient also reports that he has had multiple abscesses on his shoulders as well as his buttocks from previous IV drug use. He did receive previous treatment with Keflex. For chest pain, troponin negative, Echo unremarkable. US no DVT, CT pulmonary an giography negative for PE. Chest pain is considered musculoskeletal, no further cardiac work up needed. He can take tylenol prn. Patient has multiple skin lesions from skin popping. Ther eis an abscess on the left buttock that had surgically I&D. He will be on bactrim DS and home wound care. He is strongly advised to stop skin popping. Home Meds Active Scripts Sulfamethoxazole/Trimethoprim* (Bactrim Ds* Tablet) 1 Each Tablet, 1 TAB PO BID for 10 Days, TAB Prov:WILLIAM VEGA MD 06/27/18 Albuterol Sulfate* (Proair HFA*) 8.5 Gm Hfa.aer.ad, 2 PUFF INH Q4 for WHEEZING, #1 INHALER Prov:KENYA JEONG MD 07/05/15 Reported Medications Olwxrw-Awnfiqch-Zbdsank* (Veronica RYAN* 24,000) 24,000 L-76,000-120,000 Unit Capsule.dr, 1 CAP PO WITH MEALS, CAP 08/18/15 Hydrocodone Bit-Acetaminophen* (Orleans*) 5-325 Mg Tab, 1 TAB PO Q4H PRN for SEVERE PAIN LEVEL 7-10, TAB 08/18/15 Olanzapine* (Zyprexa*) 5 Mg Tablet, 5 MG PO DAILY, #30 TAB 08/18/15 Harrells Carbonate* (Harrells*) 300 Mg Cap, 300 MG PO TID, CAP 08/18/15 Follow-up Plan PCP in one week home health for wound care Primary Care Provider Care Physician No Primary Pending Labs Laboratory Tests Test 06/26/18 13:48 06/26/18 17:44 Troponin I < 0.012 ng/ml (0.000-0.120) < 0.012 ng/ml (0.000-0.120) D-Dimer 626.88 ng/ml (<460) D-Dimer Comment WILLIAM VEGA MD June 27, 2018 13:29
--- NOTE | 2018-06-27 13:46 | CONS ---
Assessment/Plan Assessment/Plan Hospital Course (Demo Recall) Patient is off the floor no fevers overnight no acute events per report no labs this morning Antimicrobials: aCrl Pedraza 53-year-old man with a history of drug abuse admitted with left buttock abscess status post I&D yesterday, cultures pending. Continue antibiotics continue wound care per surgery Consultation Date/Type/Reason Admit Date/Time June 26, 2018 at 18:42 Initial Consult Date 06/26/18 Type of Consult id Requesting Provider: WILLIAM VEGA MD Date/Time of Note DATE: 06/27/18 TIME: 13:46 Exam/Review of Systems Exam Vitals Vital Signs Date Temp Pulse Resp B/P (MAP) Pulse Ox O2 O2 Flow FiO2 Time Delivery Rate 06/27/18 98.3 100 19 129/90 96 11:58 (103) 06/27/18 Room Air 04:00 Intake and Output 06/26/18 06/26/18 06/27/18 1515:00 23:00 07:00 IntakeIntake Total 360 ml 600 ml BalanceBalance 360 ml 600 ml Results Result Diagram: 06/25/18 2315 06/25/18 2315 Results 24hrs Laboratory Tests Test 06/26/18 13:48 06/26/18 17:44 Troponin I < 0.012 < 0.012 D-Dimer 626.88 H D-Dimer Comment Medications Medication Current Medications IV Flush (NS 3 ml) 3 ml PER PROTOCOL IV ; Start 06/25/18 at 22:30 Ondansetron HCl (Zofran Inj) 4 mg Q6H PRN IV NAUSEA/VOMITING; Start 06/25/18 at 22:30 Nitroglycerin (Nitroglycerin (Sl Tab) 0.4 Mg) 1 tab Q5M PRN SL .CHEST PAIN; Start 06/25/18 at 22:30 Acetaminophen (Tylenol Tab) 650 mg Q6H PRN PO .PAIN 1-3 OR TEMP Last administered on 06/26/18at 09:29; Admin Dose 650 MG; Start 06/25/18 at 22:30 Docusate Sodium (Colace) 100 mg Q12H PRN PO .CONSTIPATION; Start 06/25/18 at 22:30 Bisacodyl (Dulcolax) 5 mg DAILY PRN PO .CONSTIPATION; Start 06/25/18 at 22:30 Morphine Sulfate (morphine) 2 mg Q4H PRN IM SEVERE PAIN LEVEL 7-10 Last administered on 06/27/18at 10:41; Admin Dose 2 MG; Start 06/25/18 at 23:45 Miscellaneous Information (Pending Santyl Order For Wound Care) This patient francis... PRN PRN XX WOUND CARE; Start 06/26/18 at 00:30 Amylase/Lipase/ Protease (Creon ([id number])) 1 cap WITH MEALS PO Last administered on 06/26/18at 18:56; Admin Dose 1 CAP; Start 06/26/18 at 08:00 Nifedipine (Procardia Xl) 60 mg DAILY PO Last administered on 06/27/18at 07:54; Admin Dose 60 MG; Start 06/26/18 at 19:30 Vancomycin HCl (Vanco Iv Per Pharmacy) VANCOMYCIN PER PHARMACY PER PROTOCOL XX ; Start 06/27/18 at 11:30 Piperacillin Sod/ Tazobactam Sod 100 ml @ 200 mls/hr Q8 IVPB ; Start 06/27/18 at 14:00 Vancomycin HCl 1.5 gm/Sodium Chloride 250 ml @ 83.333 mls/ hr ONCE ONCE IVPB ; Start 06/27/18 at 14:00; Stop 06/27/18 at 16:59 Vancomycin HCl 250 ml @ 125 mls/hr Q12H IVPB ; Start 06/28/18 at 02:00 VARUN WHATLEY NP June 27, 2018 13:46
[2018-06-27] MEDS ORDERED: VANCOMYCIN HCL 1.5 GM in SOD CHLORIDE 0.9% 250 ML IVPB ONE (14:00)
[2018-06-27] MEDS ORDERED: PIPER-TAZO 3.375 GM IV (PMX) 100 ML IVPB SCH (14:00)
[2018-06-28] MEDS ORDERED: VANCOMYCIN 1 GM 250 ML IVPB SCH (02:00)
== END 2018-06-27 13:50 | disposition home or self-care (01) | DRG 313 ==
LOC: INTOOBSV 21:44 → 6WM 21:44 → OBSVTOIN 06-26 18:42
PROVIDERS: ADMIT Internal Medicine; ATTEND Internal Medicine
PROC: 0Y9100Z Drainage of Left Buttock with Drainage Device, Open Approach (ICD-10-PCS; principal; 2018-06-27)
DX: R07.89 Other chest pain (principal); L02.31 Cutaneous abscess of buttock; L02.414 Cutaneous abscess of left upper limb; K86.1 Other chronic pancreatitis; L02.413 Cutaneous abscess of right upper limb; J44.9 Chronic obstructive pulmonary disease, unspecified; Z86.718 Personal history of other venous thrombosis and embolism; E78.5 Hyperlipidemia, unspecified; F31.9 Bipolar disorder, unspecified; Z87.891 Personal history of nicotine dependence; F11.90 Opioid use, unspecified, uncomplicated; Z85.9 Personal history of malignant neoplasm, unspecified; Z86.19 Personal history of other infectious and parasitic diseases; Z86.711 Personal history of pulmonary embolism; D64.9 Anemia, unspecified
CPT/HCPCS: 71045; 71275; 76536; 80053; 80307; 82550; 82553; 84484; 85025; 85378; 87081; 93306; 93970; 99217; G0378; J2270; J3370; J7050; Q9967

== ENCOUNTER 2018-07-03 22:25 | Emergency (ER) | payer OTHER ==
[~2018-07-03] VITALS: Ht 182.9 cm; Wt 79.0 kg
[~2018-07-03 22:25] MED LIST changes: +SULF1TAB31 PO
[2018-07-03 22:52] VITALS: Ht 182.9 cm; Wt 79.0 kg
[2018-07-04] MEDS ORDERED: CEFTRIAXONE 1 GM INJ IM ONE (02:30)
[2018-07-04] MEDS ORDERED: LIDOCAINE 1% (MPF) 5 ML VIAL INFIL ONE (02:30)
[2018-07-04] MEDS ORDERED: IBUP-1542 PO (02:45)
[2018-07-04] MEDS ORDERED: IBUPROFEN 600 MG TAB PO ONE (03:00)
[2018-07-04] MEDS ORDERED: ALBU8.5H8 INH (03:14)
[2018-07-04 03:16] VITALS: BP 122/61; PULSE 83; RESP 18
--- NOTE | 2018-07-04 04:37 | ERD ---
ER Documentation Chief Complaint Chief Complaint LEFT BUTTOCK UNHEALING ABCESS HPI 53-year-old male with previous IVDU presents to the ED complaining of an abscess to his left buttock. Patient states he initially had this abscess drained on July 04, 2018. He states he has been taking Bactrim and has 3 days of this medication left. He states he has been unable to establish home health care to come redressed his wounds. He presents again today complaining of mild drainage from his wound site. He denies any fevers or chills. Denies any numbness, tingling or focal weakness. No other complaints. ROS All systems reviewed and are negative except as per history of present illness. Medications Home Meds Active Scripts Albuterol Sulfate* (Proair HFA*) 8.5 Gm Hfa.aer.ad, 2 PUFF INH Q4H PRN for WHEEZING AND SOB, #1 INHALER Prov:DISHIGRIKIAN,ZEPYUR N PA-C 07/04/18 Ibuprofen* (Motrin*) 600 Mg Tab, 600 MG PO Q6H PRN for PAIN AND OR ELEVATED TEMP, #30 TAB Prov:DISHIGRIKIANZEPYUR N PA-C 07/04/18 Sulfamethoxazole/Trimethoprim* (Bactrim Ds* Tablet) 1 Each Tablet, 1 TAB PO BID for 10 Days, TAB Prov:WILLIAM VEGA MD 06/27/18 Albuterol Sulfate* (Proair HFA*) 8.5 Gm Hfa.aer.ad, 2 PUFF INH Q4 for WHEEZING, #1 INHALER Prov:KENYA JEONG MD 07/05/15 Reported Medications Jsgliq-Jprerpim-Hwmczcp* (Veronica RYAN* 24,000) 24,000 L-76,000-120,000 Unit Capsule., 1 CAP PO WITH MEALS, CAP 08/18/15 Hydrocodone Bit-Acetaminophen* (Hominy*) 5-325 Mg Tab, 1 TAB PO Q4H PRN for SEVERE PAIN LEVEL 7-10, TAB 08/18/15 Olanzapine* (Zyprexa*) 5 Mg Tablet, 5 MG PO DAILY, #30 TAB 08/18/15 [place] Carbonate* ([place]*) 300 Mg Cap, 300 MG PO TID, CAP 08/18/15 Allergies Allergies: Coded Allergies: No Known Drug Allergy (Verified Allergy, Mild, 07/05/15) PMhx/Soc History of Surgery: Yes (appendix, hand surgery, lymph nodes ) Anesthesia Reaction: No Hx Neurological Disorder: No Hx Respiratory Disorders: Yes (ASTHMA) Hx Cardiac Disorders: Yes (HTN ) Hx Psychiatric Problems: Yes (bipolar ) Hx Miscellaneous Medical Probl: Yes (ABCESS TO BUTTOCKS ) Hx Alcohol Use: Yes Hx Substance Use: No (EX HEROIN ) Hx Tobacco Use: No Smoking Status: Current some day smoker Physical Exam Vitals Vital Signs Date Temp Pulse Resp B/P (MAP) Pulse Ox O2 O2 Flow FiO2 Time Delivery Rate 07/04/18 98.3 83 18 122/61 94 Room Air 03:16 (81) 07/03/18 98.6 87 18 110/79 95 22:52 (89) Physical Exam Const: No acute distress Head: Atraumatic Eyes: Normal Conjunctiva ENT: Normal External Ears, Nose and Mouth. Neck: Full range of motion. No meningismus. Resp: Clear to auscultation bilaterally Cardio: Regular rate and rhythm, no murmurs Skin: + 1.5 open wound to left buttock, with mild dehiscence and discharge.No streaking. No fluctuance. No induration Neur: Awake and alert Psych: Normal Mood and Affect Results 24 hrs Current Medications Medications Dose Sig/Prashant Start Time Status Last (Trade) Ordered Route PRN Stop Time Admin Dose Reason Admin Ceftriaxone 1 gm ONCE ONCE 07/04/18 DC 07/04/18 Sodium IM 02:30 03:03 (Rocephin) 07/04/18 02:31 Lidocaine 5 ml ONCE ONCE 07/04/18 DC 07/04/18 (Xylocaine INFIL 02:30 03:03 1% (Mpf)) 07/04/18 02:31 Ibuprofen 600 mg ONCE ONCE 07/04/18 DC 07/04/18 (Motrin) PO 03:00 03:03 07/04/18 03:01 Procedures/MDM PROCEDURES: Wound was irrigated and dressed by technology sales specialist, pt tolerated procedure well. ED COURSE: The patient was given IM Rocephin The medication was well tolerated and the patient had market improvement in symptoms. The patient remained stable throughout ED course. MEDICAL DECISION MAKING: This is a 53-year-old with previous IV drug use who presents to the ED for wound recheck. He had an abscess on his left buttock that was drained about 2 weeks ago. He has no evidence of a drainable abscess on physical exam. Wound was irrigated and dressed as above. He was given IM Rocephin for prophylaxis. I recommended he continue with his bactrim. He has no fever here. Vital signs are stable. I have low suspicion for sepsis, osteomyelitis, or deep space tissue infection. He requested a refill of his albuterol inhaler prior to discharge which was given. Recommend follow-up with his PCP this week, wound recheck in 48 hours. Return here for any new or worsening symptoms. 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 Departure Diagnosis: Primary Impression: Abscess Condition: Stable Patient Instructions: Abscess, Incision And Drainage Referrals: [facility] YOU HAVE RECEIVED A MEDICAL SCREENING EXAM AND THE RESULTS INDICATE THAT YOU DO NOT HAVE A CONDITION THAT REQUIRES URGENT TREATMENT IN THE EMERGENCY DEPARTMENT. FURTHER EVALUATION AND TREATMENT OF YOUR CONDITION CAN WAIT UNTIL YOU ARE SEEN IN YOUR DOCTORS OFFICE WITHIN THE NEXT 1-2 DAYS. IT IS YOUR RESPONSIBILITY TO MAKE AN APPOINTMENT FOR [facility]- CARE. IF YOU HAVE A PRIMARY DOCTOR --you should call your primary doctor and schedule an appointment IF YOU DO NOT HAVE A PRIMARY DOCTOR YOU CAN CALL OUR PHYSICIAN REFERRAL HOTLINE AT IF YOU CAN NOT AFFORD TO SEE A PHYSICIAN YOU CAN CHOSE FROM THE FOLLOWING [facility] [address] [facility]. [facility] [address] [facility] [facility] [address] [facility] [facility] [address] [facility] [facility] [address] [facility]. [facility]. [address] [facility]. [facility] YOU HAVE RECEIVED A MEDICAL SCREENING EXAM AND THE RESULTS INDICATE THAT YOU DO NOT HAVE A CONDITION THAT REQUIRES URGENT TREATMENT IN THE EMERGENCY DEPARTMENT. FURTHER EVALUATION AND TREATMENT OF YOUR CONDITION CAN WAIT UNTIL YOU ARE SEEN IN YOUR DOCTORS OFFICE WITHIN THE NEXT 1-2 DAYS. IT IS YOUR RESPONSIBILITY TO MAKE AN APPOINTMENT FOR FOLOW-UP CARE. IF YOU HAVE A PRIMARY DOCTOR --you should call your primary doctor and schedule and appointment IF YOU DO NOT HAVE A PRIMARY DOCTOR YOU CAN CALL OUR PHYSICIAN REFERRAL HOTLINE AT . IF YOU CAN NOT AFFORD TO SEE A PHYSICIAN YOU CAN CHOSE FROM THE FOLLOWING [facility] INSTITUTIONS: [facility] [address] [place] [address] [facility] [address] [place] [address] [facility] + [facility] [address] [place] [address] [facility]CIALT[facility] Additional Instructions: you must keep the wound clean for the next few days. Establish care with home health care as this needs to be redressed and rechecked in 48 hours. If you are unable to have home health care do this, you can return here or go to an urgent care for wound recheck. Finish your entire course of antibiotics. Monitor for any worsening redness, discharge, fevers, chills or any other complaints. DOUGLAS RIBEIRO PA-C July 04, 2018 04:37
== END 2018-07-04 03:21 | disposition home or self-care (01) ==
LOC: FTE 22:25
DX: L02.31 Cutaneous abscess of buttock (principal); J45.909 Unspecified asthma, uncomplicated; I10 Essential (primary) hypertension; F17.210 Nicotine dependence, cigarettes, uncomplicated; T81.30XA Disruption of wound, unspecified, initial encounter; Y82.8 Other medical devices associated with adverse incidents
CPT/HCPCS: 96372; J0696; Z7502; Z7610

== ENCOUNTER 2018-07-10 21:48 | Emergency (ER) | payer OTHER ==
[~2018-07-10] VITALS: Wt 88.5 kg
[~2018-07-10 21:48] MED LIST changes: +IBUP-1542 PO
--- NOTE | 2018-07-10 22:16 | ERD ---
ER Documentation Chief Complaint Chief Complaint BLE swelling, pain HPI The patient is a 53-year-old male, presenting to the ER because of acute on chronic bilateral leg edema and pain, worse for the last couple days. He has been on his feet a lot. He was admitted in the hospital 2 weeks ago and had a negative ultrasound of bilateral lower extremity and a negative CT angiogram of the chest. He denies fever, chills, neck pain, chest pain with vomiting/radiation/exertion/diaphoresis, pleuritic chest pain, abdominal pain, vomiting, dysuria, diarrhea. He smokes and drinks and does illicit drug Past medical history: Asthma, hypertension, bipolar, COPD, hepatitis A/B/C, remote history of DVT, dyslipidemia, cholelithiasis Past surgical history: Appendectomy ROS All systems reviewed and are negative except as per history of present illness. Medications Home Meds Active Scripts Albuterol Sulfate* (Proair HFA*) 8.5 Gm Hfa.aer.ad, 2 PUFF INH Q4H PRN for WHEEZING AND SOB, #1 INHALER Prov:DISHIGRIKIANDOUGLAS PA-C 07/04/18 Ibuprofen* (Motrin*) 600 Mg Tab, 600 MG PO Q6H PRN for PAIN AND OR ELEVATED TEMP, #30 TAB Prov:DISHIGRIKIANSDAIEUR N PA-C 07/04/18 Sulfamethoxazole/Trimethoprim* (Bactrim Ds* Tablet) 1 Each Tablet, 1 TAB PO BID for 10 Days, TAB Prov:WILLIAM VEGA MD 06/27/18 Reported Medications Nifedipine* (Adalat CC*) 30 Mg Tablet.sa, 30 MG PO DAILY for 30 Days, #30 TAKE 1 TABLET BY MOUTH EVERY DAY 07/10/18 Trazodone Hcl* (Desyrel*) 100 Mg Tab, 100 MG PO QHS for 30 Days, #30 TAKE 1 TABLET BY MOUTH AT BEDTIME 07/10/18 Oxcarbazepine* (Oxcarbazepine*) 300 Mg Tablet, 300 MG PO BID for 30 Days, #60 TAKE 1 TABLET BY MOUTH TWICE A DAY 07/10/18 Prazosin Hcl* (Prazosin Hcl*) 1 Mg Capsule, 1 MG PO QHS for 30 Days, #30 TAKE ONE CAPSULE BY MOUTH AT BEDTIME 07/10/18 Bhbghb-Edejekyt-Vgatwyi* (Creon DR* 24,000) 24,000 L-76,000-120,000 Unit Capsule.dr, 1 CAP PO WITH MEALS, CAP 08/18/15 Hydrocodone Bit-Acetaminophen* ([place]*) 5-325 Mg Tab, 1 TAB PO Q4H PRN for SEVERE PAIN LEVEL 7-10, TAB 08/18/15 Olanzapine* (Zyprexa*) 5 Mg Tablet, 5 MG PO DAILY, #30 TAB 08/18/15 [place] Carbonate* ([place]*) 300 Mg Cap, 300 MG PO TID, CAP 08/18/15 Discontinued Scripts Albuterol Sulfate* (Proair HFA*) 8.5 Gm Hfa.aer.ad, 2 PUFF INH Q4 for WHEEZING, #1 INHALER Prov:KENYA JEONG MD 07/05/15 Allergies Allergies: Coded Allergies: No Known Drug Allergy (Verified Allergy, Mild, 07/10/18) PMhx/Soc History of Surgery: Yes (appendix, hand surgery, lymph nodes ) Anesthesia Reaction: No Hx Neurological Disorder: No Hx Respiratory Disorders: Yes (ASTHMA) Hx Cardiac Disorders: Yes (HTN ) Hx Psychiatric Problems: Yes (bipolar ) Hx Miscellaneous Medical Probl: Yes (ABCESS TO BUTTOCKS ) Hx Alcohol Use: Yes Hx Substance Use: No (EX HEROIN ) Hx Tobacco Use: No Physical Exam Vitals Vital Signs Date Temp Pulse Resp B/P (MAP) Pulse Ox O2 O2 Flow FiO2 Time Delivery Rate 07/11/18 99.0 82 12 107/61 98 Room Air 01:53 (76) 07/10/18 74 14 116/80 97 Room Air 22:15 (92) 07/10/18 97.5 89 22 106/68 95 21:53 (81) Physical Exam Const: No acute distress. Head: Atraumatic. Eyes: Normal Conjunctiva. ENT: Normal External Ears, Nose and Mouth. Neck: Full range of motion. No meningismus. Resp: Clear to auscultation bilaterally. Cardio: Regular rate and rhythm. Abd: Soft, non distended, normal bowel sounds, non tender. Skin: No petechiae or rashes. Back: No midline or flank tenderness. Ext: Mild bilateral leg edema/calf tenderness, minimal erythema, not warm to touch Neur: Awake and alert. No focal deficit Psych: Normal Mood and Affect. Procedures/MDM [place] [address] Radiology Main Line: [phone] DIAGNOSTIC IMAGING REPORT Patient: NIKI KING : 1965 Age: 53 Sex: M MR #: [id number] DOS: 07/10/18 2228 Ordering MD: SHAW MCMAHAN MD Location: E/R Room/Bed: PROCEDURE: Ultrasound examination of bilateral lower extremities veins with Doppler. CLINICAL INDICATION: Leg pain and swelling. TECHNIQUE: Multiple sonographic images of bilateral lower extremity venous systems were performed with pantoja scale and color Doppler. COMPARISON: 06/26/2018. FINDINGS: Bilateral common femoral, superficial femoral and popliteal veins demonstrate normal color flow, waveforms, compression and response to augmentation. There is no evidence of deep venous thrombosis. IMPRESSION: No evidence of deep venous thrombosis within bilateral lower extremities. .Smooth Germain MD, MD Date Time Electronically viewed and signed by .Smooth Germain MD, MD on 07/10/2018 23:06 .T/ CC: SHAW MCMAHAN MD [phone] [place] [id number] Radiology Main Line: [phone] DIAGNOSTIC IMAGING REPORT Patient: NIKI KING : 1965 Age: 53 Sex: M MR #: [id number] DOS: 07/10/18 0000 Ordering MD: SHAW MCMAHAN MD Location: E/R Room/Bed: PROCEDURE: XR Chest. CLINICAL INDICATION: Cough TECHNIQUE: Single portable view of the chest was obtained COMPARISON: CR CHEST 07/05/2015 FINDINGS: The trachea is midline. The cardiac silhouette is enlarged and pulmonary vascularity are within normal limits. The lungs are clear. The costophrenic angles are sharp. IMPRESSION: 1. Cardiomegaly. No evidence of acute cardiopulmonary disease. RPTAT: AAPP Physician [place] Date Time Electronically viewed and signed by Riana Lema Physician on 07/10/2018 23:37 JL/ CC: SHAW MCMAHAN MD [phone] MEDICAL MAKING DECISION: The patient is a 53-year-old male, presenting with acute on chronic bilateral lower extremity edema, is stable for outpatient follow-up The differential diagnoses considered include but are not limited to DVT, cellulitis, lymphedema, asthma, COPD, pneumonia, pulmonary embolus, pleural effusion, congestive heart failure. Departure Diagnosis: Primary Impression: Peripheral edema Condition: Good Comments I discussed the findings with the patient. I advised the patient to follow-up with the primary physician in about 2-3 days, sooner if needed and return if any concern. Disclaimer: Inadvertent spelling and grammatical errors are likely due to EHR/dictation software use and do not reflect on the overall quality of patient care. Also, please note that the electronic time recorded on this note does not necessarily reflect the actual time of the patient encounter. SHAW MCMAHAN MD July 10, 2018 22:16
[2018-07-10] MEDS ORDERED: PRAZ1CAP3 PO (23:26)
[2018-07-10] MEDS ORDERED: NIFE30TA43 PO (23:26)
[2018-07-10] MEDS ORDERED: OXCA300T41 PO (23:26)
[2018-07-10] MEDS ORDERED: TRAZ-150 PO (23:26)
[2018-07-11 01:53] VITALS: BP 107/61; PULSE 82; RESP 12
== END 2018-07-11 01:53 | disposition home or self-care (01) ==
LOC: E/R 21:48
DX: R60.0 Localized edema (principal); J44.9 Chronic obstructive pulmonary disease, unspecified; I10 Essential (primary) hypertension
CPT/HCPCS: 71045; 93970; Z7502